=== PATIENT | female | born 1985 | race Caucasian/White ===

== ENCOUNTER 2019-08-13 02:07 | Emergency (ER) | payer MEDICARE ==
[~2019-08-13] VITALS: Ht 170.2 cm; Wt 68.0 kg
[2019-08-13 02:19] VITALS: BP 129/55
[2019-08-13] MEDS ORDERED: ACETAMINOPHEN 325MG TABLET PO ONE (03:15)
== END 2019-08-13 05:21 | disposition home or self-care (01) ==
LOC: ER 02:32
DX: O26.891 Other specified pregnancy related conditions, first trimester (principal); R10.9 Unspecified abdominal pain; Z3A.12 12 weeks gestation of pregnancy; Z98.890 Other specified postprocedural states
CPT/HCPCS: 76700; 76801; 99284; 99285